=== PATIENT | male | born 1995 | race Caucasian/White ===

== ENCOUNTER → 2017-06-26 | Outpatient (CLI) | payer BC ==
[~2017-06-26] MED LIST: None at this Time
== END ==
LOC: STAR 09:48
PROVIDERS: ATTEND Otolaryngology
DX: Z02.9 Encounter for administrative examinations, unspecified (principal)

== ENCOUNTER 2017-07-29 07:37 | Day surgery (SDC) | payer BC ==
[~2017-07-29] VITALS: Ht 182.9 cm; Wt 68.9 kg
[~2017-07-29 07:37] MED LIST changes: +BACITRACIN OINT 500U/GM, 15 GM ONE; +EPINEPHRINE 1 MG/ML, 1ML ONE; +EPINEPHRINE TOPICAL SOLN 1 MG/ML, 30ML ONE; +FLUORESCEIN OPHTHALMIC 1 MG STRIP ONE; +LIDOCAINE/PF 1%-EPI 1:200K, 30 ML ONE; +OXYMETAZOLINE NASAL SPRAY 0.05%, 15ML ONE
[2017-07-29 08:27] VITALS: BP 118/75
[2017-07-29] MEDS ORDERED: LACTATED RINGERS 1,000 ML IV SCH (08:31)
[2017-07-29] MEDS ORDERED: LIDOCAINE 1%, 2ML ONE (08:32)
[2017-07-29] MEDS ORDERED: MIDAZOLAM 1 MG/ML, 2ML ONE (08:35)
[2017-07-29] MEDS ORDERED: PROPOFOL 10 MG/ML, 20ML ONE (08:36)
[2017-07-29] MEDS ORDERED: ONDANSETRON 2MG/ML, 2ML ONE ×3 (08:36→11:16)
[2017-07-29] MEDS ORDERED: FENTANYL PF 250 MCG/5ML ONE (08:36)
[2017-07-29] MEDS ORDERED: CEFAZOLIN 1,000 MG ONE (08:36)
[2017-07-29] MEDS ORDERED: DEXAMETHASONE 4 MG/ML, 1ML ONE (08:36)
[2017-07-29] MEDS ORDERED: ACET325T14 PO (08:51)
[2017-07-29] MEDS ORDERED: LIDOCAINE 1%, 2ML SQ PRN (09:00)
[2017-07-29] MEDS ORDERED: CLINDAMYCIN 150 MG/ML, 6ML ONE (09:07)
[2017-07-29] MEDS ORDERED: ROCURONIUM 10 MG/ML,10ML ONE (09:09)
[2017-07-29] MEDS ORDERED: hydrALAzine 20 MG/ML, 1ML IV PRN (10:00)
[2017-07-29] MEDS ORDERED: OXYcodone 5 MG/5 ML ORAL.SOL UDC PO PRN (10:00)
[2017-07-29] MEDS ORDERED: LABETALOL 5MG/ML, 20ML IV PRN (10:00)
[2017-07-29] MEDS ORDERED: LORazepam 2 MG/ML, 1ML IVPush PRN (10:00)
[2017-07-29] MEDS ORDERED: ALBUTEROL/IPRATROPIUM 2.5MG/0.5MG, 3 ML NPPB PRN (10:00)
[2017-07-29] MEDS ORDERED: ONDANSETRON 2MG/ML, 2ML IVPush PRN (10:00)
[2017-07-29] MEDS ORDERED: PROMETHAZINE 25 MG/ML, 1ML IV PRN (10:00)
[2017-07-29] MEDS ORDERED: HYDROmorphone 1 MG/ML, 1ML IV PRN (10:00)
[2017-07-29] MEDS ORDERED: ACETAMINOPHEN 325 MG TABLET PO PRN (10:00)
[2017-07-29] MEDS ORDERED: MEPERIDINE/PF 25MG/0.5ML IVPush PRN (10:00)
[2017-07-29] MEDS ORDERED: MIDAZOLAM 1 MG/ML, 2ML IV PRN (10:00)
[2017-07-29] MEDS ORDERED: DIAZEPAM 5 MG/ML, 2ML IVPush PRN (10:00)
[2017-07-29] MEDS ORDERED: SUCCINYLCHOLINE 20 MG/ML, 10ML ONE (10:10)
[2017-07-29] MEDS ORDERED: LIDOCAINE GEL 2%, 5ML ONE (10:10)
[2017-07-29] MEDS ORDERED: ACETAMINOPHEN 650 MG/20.3 ML UDC ONE (11:16)
[2017-07-29] MEDS ORDERED: FENTANYL PF 100 MCG/2ML ONE (11:17)
[2017-07-29] MEDS ORDERED: OXYcodone 5 MG/5 ML ORAL.SOL UDC ONE (11:17)
[2017-07-29] MEDS: FENTANYL PF 100 MCG/2ML IV PRN ×3 (11:20→11:47)
[2017-07-29] MEDS ORDERED: morphine SULFATE 10 MG/ML, 1ML ONE (12:49)
[2017-07-29] MEDS ORDERED: morphine SULFATE 10 MG/ML, 1ML IVPush PRN (13:00)
[2017-07-29] MEDS ORDERED: OXYcodone/APAP 5/325MG TABLET PO PRN (13:00)
== END 2017-07-29 14:22 ==
LOC: OUT 07:37
PROVIDERS: ATTEND Otolaryngology
DX: J34.2 Deviated nasal septum (principal); J32.0 Chronic maxillary sinusitis; J01.01 Acute recurrent maxillary sinusitis; Z88.0 Allergy status to penicillin; Z88.8 Allergy status to other drugs, medicaments and biological substances
CPT/HCPCS: 30520; 31255; 31267; 61782; 88304; 88311; J0171; J0330; J1100; J2250; J2270; J2405; J2704; J3010; J3490; J7120; 88305; J0690